=== PATIENT | female | born 1945 | race Caucasian/White ===

== ENCOUNTER 2024-02-18 18:27 | Emergency (ER) | payer MEDICARE ==
[~2024-02-18] VITALS: Ht 162.6 cm; Wt 115.0 kg
[2024-02-18] MEDS ORDERED: COZAAR25 MG PO (18:55)
[2024-02-18] MEDS ORDERED: LEVOTHYROXINE25 MC1 PO (18:55)
[2024-02-18 19:03] LABS: EOSINOPHILS 0.2 % (0-6); HEMOGLOBIN 13.2 g/dL (12.0-18.0); RDW 14.5 (10.5-15.0)
[2024-02-18 19:06] LABS: BASOPHILS 0.1 % (0-2); HEMATOCRIT 37.5 % (35.0-50.0); LYMPHOCYTES 5.7 % (24-44); MCH 32.7 (27-36); MCHC 35.2 g/dl (30-36); MCV 92.9 fl (81-99); MONOCYTES 6.5 % (0-12); NEUTROPHILS 87.5 % (39-80); PLATELET COUNT 153 K/uL (140-440); RBC 4.03 M/ul (4.3-5.7)
[2024-02-18 19:12] LABS: ALBUMIN 3.7 g/dL (3.4-5.0); ALBUMIN/GLOBULIN RATIO 0.76 (1.1-2.4); ANION GAP 16.4 (7-21); BILIRUBIN, TOTAL 1.2 ng/dL (0.2-1.0); BUN/CREATININE RATIO 15.74 (6.0-28.6); CALCIUM 9.7 mg/dL (8.5-10.1); CREATININE, SERUM 1.08 mg/dL (0.55-1.02); POTASSIUM 3.4 mmol/L (3.5-5.1); PROTEIN, TOTAL 8.6 g/dL (6.4-8.2)
[2024-02-18] MEDS ORDERED: ondansetron HCL 4 MG/2 ML VIAL IV ONE (19:30)
[2024-02-18] MEDS ORDERED: ONDANSETRON 4 MG HOME.PACK SL ONE (20:45)
[2024-02-18 20:55] VITALS: BP 153/66
== END 2024-02-18 20:55 | disposition home or self-care (01) ==
LOC: ED 18:27
PROVIDERS: Internal Medicine
DX: A05.9 Bacterial foodborne intoxication, unspecified (principal); Z79.890 Hormone replacement therapy; Z79.899 Other long term (current) drug therapy
CPT/HCPCS: 36415; 74177; 80053; 83690; 85025; 96374; 99284-25; A9270; J2405; Q9967